=== PATIENT | female | born 1960 | race Asian ===

== ENCOUNTER 2018-07-12 09:35 | Emergency (ER) | payer SELFPAY ==
[2018-07-12 09:40] VITALS: BMI 29.0
--- NOTE | 2018-07-12 10:12 | PDOC ---
Attending Attestation - Resident Resident Name: Sixto Knox - ED Attending Attestation I have performed the following: I have examined & evaluated the patient, The case was reviewed & discussed with the resident, I agree w/resident's findings & plan, Exceptions are as noted - HPI HPI: 07/12/18 10:09 57 yo F here with c/o epigastric substernal chest pain, burning in quality. worse in evening and when lying flat. pt state she has had in the past, but felt today was different. she works as a nurse, did not take anything prior to arrival for pain, monson have famlily h/o cad brother mi in his 40's and father in 50's. pt states she goes to a [facility] see dr Ammy Galvez. had seen a visual artist 6 mo ago had echo, but no prior stress test. no recent travel, no h/o pe or dvt. pain not plueritic. no prior cardiac work up no associated n/v/d no sob. started one week ago. 07/12/18 12:58 - Physicial Exam PE: 07/12/18 10:10 awake alert lungs clear bilaterally heart rrr no mrg abd soft nt. ext wwp no edema. no calf tenderness pulses symmetric. - Medical Decision Making 07/12/18 10:11 57 yo htn , fam h/o cad dad 57, brother 47. here with burning chest pain, abd pain. differential includes acs, gerd, biliary colic, pancreatitis. plan labs ekg trop lipase us ruq. 07/12/18 13:00 pt initial labs were unremarkable. recommed pt to stay overnight for further acs workup, pt declined. we will repeat 4 hour trop. try to contact dr galvez. cant remember the name for visual artist she saw. will refer her outpt referral for stress test. Heart Score/ECG Review #1 General ECG Interpretation: Sinus Rhythm, Normal Rate (82), Normal Intervals, No acute ischemic changes
--- NOTE | 2018-07-12 10:13 | PDOC ---
History of Present Illness - General Chief Complaint: Chest Pain Stated Complaint: CHEST PAIN - History of Present Illness Initial Comments: The pt is a 57F w/ a history of HTN and a FH of MA (father and brother) who presents for evaluation of 3-4 days of intermittent, non-exertional, sharp, non- radiating, chest pain that is worse while laying down, and that she has never had before. She denies associated SOB, fevers, vision changes, N/V/C/D, dysuria , or hematuria. 07/12/18 10:46 Past History - Past Medical History Allergies/Adverse Reactions: Allergies Allergy/AdvReac Type Severity Reaction Status Date / Time No Known Allergies Allergy Verified 07/12/18 09:40 Home Medications: Ambulatory Orders Aspirin [ASA -] 81 mg PO DAILY 07/12/18 Enalapril Maleate 5 mg PO DAILY 07/12/18 COPD: No HTN: Yes - Suicide/Smoking/Psychosocial Hx Smoking History: Never smoked Review of Systems - Review of Systems Able to Perform ROS?: Yes Comments:: GENERAL/CONSTITUTIONAL: No fever or chills. No weakness HEAD, EYES, EARS, NOSE AND THROAT: No change in vision. No ear pain or discharge. No sore throat CARDIOVASCULAR: No shortness of breath RESPIRATORY: Denies cough, hemoptysis GASTROINTESTINAL: No nausea, vomiting, diarrhea or constipation GENITOURINARY: No dysuria, frequency, or change in urination MUSCULOSKELETAL: No joint or muscle swelling or pain SKIN: No rash NEUROLOGIC: No headache, vertigo, loss of consciousness, or change in strength/ sensation ENDOCRINE: No increased thirst. No abnormal weight change HEMATOLOGIC/LYMPHATIC: No anemia, easy bleeding, or history of blood clots ALLERGIC/IMMUNOLOGIC: No hives or skin allergy 07/12/18 10:48 Is the patient limited Yoruba proficient: No *Physical Exam - Vital Signs Last Vital Signs Temp Pulse Resp BP Pulse Ox 98.2 F 85 18 130/72 98 07/12/18 09:37 07/12/18 09:37 07/12/18 09:37 07/12/18 09:37 07/12/18 09:37 - Physical Exam Comments: GENERAL: Awake, alert, and oriented to person/place/time, in no acute distress HEAD: No signs of trauma, normocephalic, atraumatic EYES: PERRLA, EOMI, sclera anicteric, conjunctiva clear ENT: Hearing grossly normal, nares patent, oropharynx clear without exudates. No uvular deviation. Moist mucosa LUNGS: No distress, speaks full sentences, clear to auscultation bilaterally HEART: Regular rate and rhythm, normal S1 and S2, no murmurs appreciated, no chest wall TTP, peripheral pulses normal and equal bilaterally ABDOMEN: Soft, nontender, normoactive bowel sounds. No guarding, no rebound EXTREMITIES: Normal inspection, Normal range of motion, no edema. No clubbing or cyanosis NEUROLOGICAL: Cranial nerves II through XII grossly intact. Normal speech, normal gait, no focal sensorimotor deficits SKIN: Warm, Dry 07/12/18 10:48 Heart Score/ECG Review - History History: Moderately suspicious - Electrocardiogram EKG: Normal - Age Age: 45-65 - Risk Factors Risk Factors Heart Score: Yes Hx Hypertension, Yes Positive family hx of cardiac disease Based on the list above the patient has:: 1-2 risk factors - Troponin Troponin: </= normal limit - Score Heart Score - Total: 3 ED Treatment Course - LABORATORY CBC & Chemistry Diagram: 07/12/18 10:14 07/12/18 10:14 Medical Decision Making - Medical Decision Making Ddx: ACS vs GERD vs PNA, not likely PNX/PE pt w/ b/l breath sounds and no recent travel/OCP/smoking ED Course Labs sent ECG CXR ECG NSR; HR 82, QTc 413; no evidence of ST elevation 07/12/18 10:49 CXR w/o acute pathology No leukocytosis No anemia Lytes wnl No BRENNAN Alk phos slightly elevated Trop I neg Lipase wnl 07/12/18 11:34 Pt does not wish to stay for obs. Risks of not staying for obs discussed w/ patient who verbalized understanding. Will obtain 4 hour Trop I 07/12/18 13:02 *DC/Admit/Observation/Transfer Diagnosis at time of Disposition: Chest pain Qualifiers: Chest pain type: unspecified Qualified Code(s): R07.9 - Chest pain, unspecified Hypertension Qualifiers: Hypertension type: unspecified Qualified Code(s): I10 - Essential (primary) hypertension - Discharge Dispostion Disposition: HOME Condition at time of disposition: Stable Decision to Admit order: No - Referrals Referrals: Milton Betancourt MD [Staff Physician] - - Patient Instructions Printed Discharge Instructions: DI for Chest Pain Additional Instructions: You were seen in the Emergency Department for evaluation of chest pain. Your troponin was negative x2. Review the handout provided at discharge. Follow up with your primary care provider and the referral given. Return to the Emergency Department if you develop fevers/chills, worsening pain, trouble breathing, vomiting, or any new/concerning symptoms. - Post Discharge Activity
[2018-07-12 10:53] LABS: BASO % 1.3 % (0-2.0); EOS % 7.1 % (0-4.5); HEMATOCRIT 40.2 % (32.4-45.2); HEMOGLOBIN 13.7 GM/dL (10.7-15.3); LYMPH % 36.5 % (8-40); MCHC 34.2 g/dl (32.0-36.0); MEAN CELL VOLUME 84.9 fl (80-96); MEAN PLT VOLUME 8.2 fl (7.5-11.1); MONO % 10.9 % (3.8-10.2); NEUT % 44.2 % (42.8-82.8); PLATELET COUNT 219 K/MM3 (134-434); RBC 4.74 M/mm3 (3.60-5.2); RDW 13.4 % (11.6-15.6); WHITE BLOOD COUNT 5.4 K/mm3 (4.0-10.0)
[2018-07-12 11:15] LABS: ALBUMIN 3.9 g/dl (3.4-5.0); ALK PHOS 127 U/L (45-117); ANION GAP 6 MMOL/L (8-16); BILIRUBIN,TOTAL 0.4 mg/dL (0.2-1); BLOOD UREA NITROGEN 10 mg/dL (7-18); CALCIUM 9.5 mg/dL (8.5-10.1); CHLORIDE 108 mmol/L (98-107); CO2 28 mmol/L (21-32); CREATININE 0.7 mg/dL (0.55-1.3); GLUCOSE,RANDOM 100 mg/dL (74-106); POTASSIUM 4.2 mmol/L (3.5-5.1); SGOT/AST 26 U/L (15-37); SGPT/ALT 51 U/L (13-61); SODIUM 142 mmol/L (136-145); TOT PROT 7.8 g/dl (6.4-8.2)
[2018-07-12] MEDS ORDERED: FAMOTIDINE 20 MG/50 ML IVPB 20 MG/50 ML MG IVPB ONE ×2 (12:58→13:10)
[2018-07-12] MEDS ORDERED: MAG HYDROX/AL HYDROX/SIMETH 30 ML UNIT-DOSE CUP PO ONE (12:58)
[2018-07-12] MEDS ORDERED: MAG HYDROX/AL HYDROX/SIMETH 30 ML UNIT-DOSE CUP ONE (13:10)
[2018-07-12 15:54] VITALS: BP 110/79; PULSE 79; TEMP 97.9
--- NOTE | 2018-07-13 11:00 | EKG ---
Test Reason : Blood Pressure : / mmHG Vent. Rate : 082 BPM Atrial Rate : 082 BPM P-R Int : 164 ms QRS Dur : 086 ms QT Int : 354 ms P-R-T Axes : 071 058 049 degrees QTc Int : 413 ms NORMAL SINUS RHYTHM RIGHT ATRIAL ENLARGEMENT NONSPECIFIC ST ABNORMALITY ABNORMAL ECG NO PREVIOUS ECGS AVAILABLE Confirmed by DEQUAN ANTUNEZ, NGUYEN ([id number]) on 07/13/2018 10:59:51 AM Referred By: Confirmed By:NGUYEN BAIRES MD
== END 2018-07-12 15:54 | disposition home or self-care (01) ==
LOC: JER 09:35
PROC: 3E033GC Introduction of Other Therapeutic Substance into Peripheral Vein, Percutaneous Approach (ICD-10-PCS; principal; 2018-07-12)
DX: R07.9 Chest pain, unspecified (principal); I10 Essential (primary) hypertension
CPT/HCPCS: 36415; 71046-TC-FY; 80053; 83690; 84484; 85025; 93005; 93010; 99285-25